=== PATIENT | female | born 1940 | race Two or more races ===

== ENCOUNTER 2017-03-26 11:42 | Outpatient (CLI) | payer OTHER ==
[~2017-03-26 11:42] MED LIST: ASPIR 8181 MG; BENAZEPRIL HCL10 MG; CLARITIN10 MG PO; CLONAZEPAM0.125 MG/T; FLONASE16 GM NS; GILTUSS TR TAB1 EACH PO; NORVASC5 MG; PRAVASTATIN SOD10 MG; SPIRIVA RESPIMAT4 G1
== END 2017-03-26 15:45 | disposition home or self-care (01) ==
LOC: TOM 11:42
DX: R06.02 Shortness of breath (principal); J43.2 Centrilobular emphysema

== ENCOUNTER 2018-11-09 09:46 | Outpatient (CLI) | payer OTHER | END 2018-11-09 09:48 | disposition home or self-care (01) | LOC: MAMO-SONO 09:46 | DX: Z12.31 Encounter for screening mammogram for malignant neoplasm of breast (principal); N60.11 Diffuse cystic mastopathy of right breast; N60.12 Diffuse cystic mastopathy of left breast; Z87.898 Personal history of other specified conditions; Z09 Encounter for follow-up examination after completed treatment for conditions other than malignant neoplasm ==

== ENCOUNTER 2018-11-16 10:27 | Outpatient (CLI) | payer OTHER | END 2018-11-16 14:16 | disposition home or self-care (01) | LOC: NUCLEAR 10:27 | DX: M81.0 Age-related osteoporosis without current pathological fracture (principal) ==

== ENCOUNTER 2019-02-14 15:16 | Emergency (ER) | payer OTHER ==
[~2019-02-14] VITALS: Ht 157.5 cm; Wt 42.6 kg
[2019-02-14] MEDS ORDERED: ANORO ELLIPTA1 EACH (16:11)
[2019-02-14] MEDS ORDERED: BACTRIM DS TAB1 EACH PO (23:50)
== END 2019-02-15 00:26 | disposition home or self-care (01) ==
LOC: ER 15:16
DX: L97.828 Non-pressure chronic ulcer of other part of left lower leg with other specified severity (principal)

== ENCOUNTER 2019-03-04 08:21 | Outpatient (CLI) | payer OTHER ==
[~2019-03-04 08:21] MED LIST changes: +ANORO ELLIPTA1 EACH; +BACTRIM DS TAB1 EACH PO
== END 2019-03-04 08:38 | disposition home or self-care (01) ==
LOC: NUCLEAR 08:21
DX: L97.929 Non-pressure chronic ulcer of unspecified part of left lower leg with unspecified severity (principal); I73.9 Peripheral vascular disease, unspecified

== ENCOUNTER 2019-03-08 08:18 | Outpatient (CLI) | payer OTHER | END 2019-03-08 08:29 | disposition home or self-care (01) | LOC: NUCLEAR 08:18 | DX: L97.829 Non-pressure chronic ulcer of other part of left lower leg with unspecified severity (principal); I87.2 Venous insufficiency (chronic) (peripheral) ==

== ENCOUNTER 2019-04-26 08:02 | Outpatient (CLI) | payer OTHER | END 2019-04-26 08:20 | disposition home or self-care (01) | LOC: RAD 08:02 | DX: J43.2 Centrilobular emphysema (principal); J30.1 Allergic rhinitis due to pollen; R06.02 Shortness of breath ==

== ENCOUNTER 2020-09-25 12:07 | Inpatient (IN) | payer OTHER ==
[~2020-09-25] VITALS: Ht 157.5 cm; Wt 41.7 kg
[2020-09-25] MEDS ORDERED: CLORAZEPATE D3.75 MG PO (12:30)
[2020-09-25] MEDS ORDERED: ANORO ELLIPTA1 EACH IH (12:31)
[2020-09-25] MEDS ORDERED: ZANAFLEX4 M1 PO (15:33)
[2020-09-29] MEDS ORDERED: PERCOCET 5-3251 EACH PO (08:50)
[2020-09-29] MEDS ORDERED: DUI500 PO (08:50)
[2020-09-29] MEDS ORDERED: ELIQUIS2.5 MG PO (08:50)
== END 2020-09-29 16:06 | DRG 522 ==
LOC: ER 12:07 → SURH 21:50 → SEC-K 21:50 → SURH 09-26 04:19
PROVIDERS: ADMIT Orthopaedic Surgery; ATTEND Orthopaedic Surgery
PROC: 0SRR0JZ Replacement of Right Hip Joint, Femoral Surface with Synthetic Substitute, Open Approach (ICD-10-PCS; principal; 2020-09-26 14:00)
DX: S72.091A Other fracture of head and neck of right femur, initial encounter for closed fracture (principal); D62 Acute posthemorrhagic anemia; W18.30XA Fall on same level, unspecified, initial encounter; Y93.01 Activity, walking, marching and hiking; J43.8 Other emphysema; Z20.822 Contact with and (suspected) exposure to COVID-19; M81.0 Age-related osteoporosis without current pathological fracture

== ENCOUNTER 2021-06-18 09:54 | Outpatient (CLI) | payer OTHER ==
[~2021-06-18 09:54] MED LIST changes: +ANORO ELLIPTA1 EACH IH; +CLORAZEPATE D3.75 MG PO; +DUI500 PO; +ELIQUIS2.5 MG PO; +PERCOCET 5-3251 EACH PO; +ZANAFLEX4 M1 PO
== END 2021-06-18 10:00 | disposition home or self-care (01) ==
LOC: SONOGRAMA 09:54
PROVIDERS: ATTEND Internal Medicine
DX: R94.5 Abnormal results of liver function studies (principal)

== ENCOUNTER 2021-10-15 13:32 | Emergency (ER) | payer OTHER ==
[~2021-10-15] VITALS: Ht 157.5 cm; Wt 42.6 kg
[2021-10-15] MEDS ORDERED: LORADAMED10 MG PO (13:48)
[2021-10-15] MEDS ORDERED: XOPENEX0.63 MG/3 IH (17:57)
== END 2021-10-15 18:08 | disposition home or self-care (01) ==
LOC: ER 13:32
DX: U07.1 COVID-19 (principal); J44.1 Chronic obstructive pulmonary disease with (acute) exacerbation; I10 Essential (primary) hypertension; Z91.018 Allergy to other foods

== ENCOUNTER 2021-10-25 10:07 | Outpatient (CLI) | payer OTHER ==
[~2021-10-25 10:07] MED LIST changes: +LORADAMED10 MG PO; +XOPENEX0.63 MG/3 IH
== END 2021-10-25 10:11 | disposition home or self-care (01) ==
LOC: RAD 10:07
PROVIDERS: ATTEND Specialist
DX: R05.3 Chronic cough (principal); J44.9 Chronic obstructive pulmonary disease, unspecified

== ENCOUNTER 2021-10-29 13:42 | Inpatient (IN) | payer OTHER ==
[~2021-10-29] VITALS: Ht 152.4 cm; Wt 42.6 kg
== END 2021-11-14 20:48 | disposition home or self-care (01) | DRG 177 ==
LOC: ER 13:42 → ICU-2 19:16 → ICU 11-01 20:59 → MEDJ 11-07 20:38
PROVIDERS: ADMIT Internal Medicine; ATTEND Internal Medicine
PROC: BW24ZZZ Computerized Tomography (CT Scan) of Chest and Abdomen (ICD-10-PCS; 2021-10-29)
PROC: B24BZZZ Ultrasonography of Heart with Aorta (ICD-10-PCS; 2021-10-30)
PROC: B54DZZZ Ultrasonography of Bilateral Lower Extremity Veins (ICD-10-PCS; 2021-11-06)
PROC: 4A12X4Z Monitoring of Cardiac Electrical Activity, External Approach (ICD-10-PCS; principal; 2021-11-07)
PROC: BW24ZZZ Computerized Tomography (CT Scan) of Chest and Abdomen (ICD-10-PCS; 2021-11-08)
DX: U07.1 COVID-19 (principal); J12.82 Pneumonia due to coronavirus disease 2019; J44.1 Chronic obstructive pulmonary disease with (acute) exacerbation; J90 Pleural effusion, not elsewhere classified; J98.11 Atelectasis; R06.02 Shortness of breath; R09.02 Hypoxemia; U09.9 Post COVID-19 condition, unspecified; I71.2 Thoracic aortic aneurysm, without rupture; I10 Essential (primary) hypertension; E78.5 Hyperlipidemia, unspecified; F17.200 Nicotine dependence, unspecified, uncomplicated

== ENCOUNTER 2022-02-27 08:10 | Outpatient (CLI) | payer OTHER | END 2022-02-27 08:14 | disposition home or self-care (01) | LOC: RAD 08:10 | PROVIDERS: ATTEND Internal Medicine | DX: J44.9 Chronic obstructive pulmonary disease, unspecified (principal) ==

== ENCOUNTER 2024-05-17 10:19 | Outpatient (CLI) | payer OTHER | END 2024-05-17 10:23 | disposition home or self-care (01) | LOC: SONOGRAMA 10:19 | PROVIDERS: ATTEND Internal Medicine | DX: M25.512 Pain in left shoulder (principal) ==

== ENCOUNTER 2024-05-21 11:00 | Emergency (ER) | payer OTHER ==
[~2024-05-21] VITALS: Ht 157.5 cm; Wt 40.8 kg
[2024-05-21] MEDS ORDERED: KETOROLAC TROMETHAMINE 60 MG VIAL IM ONE (11:28)
== END 2024-05-21 12:25 | disposition home or self-care (01) ==
LOC: ER 11:00
DX: M75.42 Impingement syndrome of left shoulder (principal); I10 Essential (primary) hypertension; Z91.018 Allergy to other foods
CPT/HCPCS: 29105; 96372; 99282; J1885

== ENCOUNTER 2024-05-28 08:58 | Outpatient (CLI) | payer OTHER | END 2024-05-28 09:02 | disposition home or self-care (01) | LOC: MRI 08:58 | PROVIDERS: ATTEND Orthopaedic Surgery | DX: Z76.89 Persons encountering health services in other specified circumstances (principal); M75.122 Complete rotator cuff tear or rupture of left shoulder, not specified as traumatic | CPT/HCPCS: 71046; 73222; Q9965; 73221 ==

== ENCOUNTER 2024-06-16 10:32 | Outpatient (CLI) | payer OTHER | END 2024-06-16 10:33 | disposition home or self-care (01) | LOC: NUCLEAR 10:32 | PROVIDERS: ATTEND Orthopaedic Surgery | DX: M81.0 Age-related osteoporosis without current pathological fracture (principal) ==

== ENCOUNTER 2024-09-13 08:15 | Outpatient (CLI) | payer OTHER | END 2024-09-13 08:24 | disposition home or self-care (01) | LOC: TOM 08:15 | PROVIDERS: ATTEND Internal Medicine | DX: I71.21 Aneurysm of the ascending aorta, without rupture (principal); I10 Essential (primary) hypertension | CPT/HCPCS: 71260; Q9965 ==

== ENCOUNTER 2024-12-14 09:00 | Outpatient (CLI) | payer OTHER | END 2024-12-14 09:01 | disposition home or self-care (01) | LOC: SONOGRAMA 09:00 | PROVIDERS: ATTEND Internal Medicine | DX: R94.5 Abnormal results of liver function studies (principal) ==

== ENCOUNTER 2024-12-15 09:05 | Outpatient (CLI) | payer OTHER | END 2024-12-15 09:06 | disposition home or self-care (01) | LOC: NUCLEAR 09:05 | PROVIDERS: ATTEND Internal Medicine | DX: I47.0 Re-entry ventricular arrhythmia (principal); I11.0 Hypertensive heart disease with heart failure ==